=== PATIENT | male | born 1975 | race Caucasian/White ===

== ENCOUNTER 2024-05-09 09:52 | Outpatient (AMB) | payer OTHER, SELFPAY ==
[2024-05-09 09:56] VITALS: BP 132/84; PULSE 78; O2SAT 97; BMI 34.7
--- NOTE | 2024-05-09 09:56 | A.OFFPC_ITS ---
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 Details Pt presents for PE PFSH Surgical History H/O wrist surgery H/O hand surgery Family History (Updated 05/09/24 @ 10:21 by Yvonne Dean MD) Father Heart problem, Onset Age: 80 Prostate cancer, Onset Age: 55 Mother COPD (chronic obstructive pulmonary disease) Sister Substance use disorder Social History Household Members Other:: , 2 children, (19, 11), Housing: House Patient Tobacco Use Status: Former Tobacco user e-Cigarette/Vaping Use: Never Used service: No Current occupational status: employed Cognitive needs: No Hearing needs: No Vision needs: Yes Questionnaire PHQ-9 Over the last 2 weeks, how often have you been bothered by any of the following problems? 1. Little interest or pleasure in doing things: several days 2. Feeling down, depressed, or hopeless: not at all 3. Trouble falling or staying asleep, or sleeping too much: several days 4. Feeling tired or having little energy: several days 5. Poor appetite or overeating: several days 6. Feeling bad about yourself - or that you are a failure or have let yourself or your family down: not at all 7. Trouble concentrating on things, such as reading the newspaper or watching television: not at all 8. Moving or speaking so slowly that other people could have noticed. Or the opposite - being so fidgety or restless that you have been moving around a lot more than usual: not at all 9. Thoughts that you would be better off or of hurting yourself in some way: not at all Total score: 4 Depression Screening Interpretation: Negative Depression Screening Done: Yes 24439 - PHQ-9 Billing: Yes Source: Developed by Drs. Yoel Tran, Arlin Phillips, Kehinde Garcia and colleagues, with an educational matt from [employer]. Thrive Questionnaire Date Thrive assessed: 05/09/24 I am a: Patient What is your living situation today?: I have a steady place to live Within the past 12 months, did the food you bought not last and you didn't have the money to get more?: Never true Within the past 12 months, did you worry whether your food would run out before you got money to buy more?: Never true Do you have trouble paying for medicines?: No Do you have trouble getting transportation to medical appointments?: No Do you have trouble paying your heating and electricity bill?: No Do you have trouble taking care of your child, family member or friend?: No Do you have trouble with day-to-day activities such as bathing, preparing meals, shopping, managing finances, etc.?: No Are you currently unemployed and looking for a job?: No Are you interested in more education?: Yes Please select the resources that you would like help with: None Currently or been in a relationship where the following occur: No concerns r eported THRIVE Score: 0 AUDIT C Alcohol Use Questionnaire (AUDIT-C) 1. How often do you have a drink containing alcohol?: 2-4 times a month 2. How many drinks containing alcohol do you have on a typical day when you are drinking?: 3 or 4 3. How often do you have six or more drinks on one occasion?: Less than monthly Total Score: 4 DOC-7 AMB Questionnaire DOC-7 Date DOC - 7 assessed: 05/09/24 Feeling nervous, anxious, or on edge: 0 = Not at all Not being able to stop or control worryin = Not at all Worrying too much about different things: 0 = Not at all Trouble relaxin = Several days Being so restless that it is hard to sit still: 0 = Not at all Becoming easily annoyed or irritable: 0 = Not at all Feeling afraid as if something awful might happen: 0 = Not at all Total DOC-7 score (0-4 normal; 5-9 mild; 10-14 moderate; 15-21 severe): 1 Source: Developed by Drs. Yoel Tran, Arlin Phillips, Kehinde Garcia and colleagues, with an educational matt from [employer]. DOC-7 Assessment Billing DOC-7 Assessment Tool: DOC-7 Assessment 00785 Review of Systems Const All systems reviewed & are unremarkable except as noted in HPI and below Eyes Reports no additional complaints ENT Reports no additional complaints Card Reports no additional complaints Resp Reports no additional complaints GI Reports no additional complaints Reports no additional complaints Physical exam (Primary Care) Vital Signs: Last Vital Signs Pulse 78 05/09/24 09:56 BP 132/84 05/09/24 09:56 Pulse Ox 97 05/09/24 09:56 Oxygen Delivery Method Room Air 05/09/24 09:56 BMI result Body Mass Index 34.7 Tobacco/Smoking Status: Tobacco use Status Tobacco use date assessed 05/09/24 05/09/24 10:06 Patient Tobacco Use Status Former Tobacco user 05/09/24 10:17 e-Cigarette/Vaping Use Never Used 05/09/24 10:17 PHQ-9: PHQ-9 Score PHQ-9: Total score 4 05/09/24 12:40 Depression Screening Interpretation: Negative Thrive Assessment: Date of Thrive Assessment Date Thrive assessed 05/09/24 05/09/24 10:06 Currently or been in a relationship where the following occur: No concerns reported Const General: no acute distress HENMT Head: Yes normal to inspection Ears: hearing grossly normal bilaterally Face and sinus: Yes normal facial exam Mouth: Normal oral and palatal mucosa present Throat: Yes posterior oropharynx normal Eyes General: appearance normal, both eyes and all related structures Neck Neck: Yes no lymphadenopathy and Yes supple Resp Effort & Inspection: normal respiratory effort Auscultation: clear to auscultation bilaterally Cardio Rhythm: regular rhythm Heart sounds: S1 normal heart sound present and S2 normal heart sound present GI Inspection: Yes normal to inspection Palpation (GI): Soft to palpation Percussion: Yes normal to percussion Auscultation: normal bowel sounds Coding Level of Care Code Est Pt Prev Care 40-64y(59039) Diagnoses Substance abuse F19.10 Annual physical exam Z00.00 Hx of colonoscopy Z98.890 Additional Codes DOC-7 Assessment Billing - DOC-7 Assessment Tool: DOC-7 Assessment 30932 ([id number]) Assessment & Plan Assessment & Plan (1) Substance abuse: Comment: oral opiates , in remission for 16 years, in program Code(s): F19.10 - Other psychoactive substance abuse, uncomplicated Category: Medical Plan: Established with Suboxone program (2) Annual physical exam: Code(s): Z00.00 - Encounter for general adult medical examination without abnormal findings Category: Medical Plan: Well-balanced diet regular physical activity discussed with the patient. Blood pressure is borderline elevated. Low-sodium diet and weight loss discussed with the patient follow-up in 2 months. Check fasting blood work (3) Hx of colonoscopy: Comment: Gena Medina, Code(s): Z98.890 - Other specified postprocedural states Category: Surgical Plan: We will obtain records of colonoscopy Orders: Orders UA w Microscopic Today Z00.00 - Encounter for general adult medical examination without abnormal findings Comprehensive [place]. Panel Fast Today Z00.00 - Encounter for general adult medical examination without abnormal findings Lipid Panel Today Z00.00 - Encounter for general adult medical examination without abnormal findings Complete Blood Count Auto Diff Today Z00.00 - Encounter for general adult medical examination without abnormal findings PSA,Total (Free>4and<10) Today Z00.00 - Encounter for general adult medical examination without abnormal findings
== END 2024-05-09 10:36 | disposition home or self-care (01) ==
PROVIDERS: PCP Internal Medicine; Visit Provider Internal Medicine
DX: F19.10 Other psychoactive substance abuse, uncomplicated (principal); Z00.00 Encounter for general adult medical examination without abnormal findings; Z98.890 Other specified postprocedural states

== ENCOUNTER → 2024-05-09 09:52 | Outpatient (BNVA) | payer OTHER, SELFPAY | PROVIDERS: PCP Internal Medicine; Visit Provider Internal Medicine | DX: Z00.00 Encounter for general adult medical examination without abnormal findings (principal); F11.20 Opioid dependence, uncomplicated | CPT/HCPCS: 96127 ==

== ENCOUNTER 2024-05-27 08:37 | Outpatient (REF) | payer OTHER, SELFPAY ==
[2024-05-27 10:14] LABS: MANUAL DIFF FLAG NO
[2024-05-27 10:21] LABS: Basophils Absolute Auto 0.1 X10*3/uL (0.0-0.2); Basophils Percent Auto 1.1 % (0-2); Eosinophils Absolute Auto 0.1 X10*3/uL (0.0-0.4); Eosinophils Percent Auto 2.6 % (0-4); Hematocrit 53.7 % (42.0-52.0); Hemoglobin 17.6 g/dl (14.0-18.0); Imm Gran Abs Auto 0.01 X10*3/uL (0.00-0.03); Imm Gran Pct Auto 0.2 % (0.0-0.4); Lymphocytes Absolute Auto 1.9 X10*3/uL (1.2-4.9); Lymphocytes Percent Auto 35.7 % (20-40); Mean Corpuscular HGB Conc 32.8 g/dl (31.0-36.0); Mean Corpuscular Volume 94.5 fL (80.0-98.0); Mean Platelet Volume 9.6 fL (9.4-12.4); Monocytes Absolute Auto 0.5 X10*3/uL (0.1-1.2); Monocytes Percent Auto 9.1 % (2-11); Neutrophils Absolute Auto 2.8 x10*3/uL (2.0-8.3); Neutrophils Percent Auto 51.3 % (45-73); Platelet Count 218 X10*3/uL (160-400); Red Blood Count 5.68 X10*6/uL (4.60-5.80); Red Cell Distribution Width 13.2 % (11.0-16.0); White Blood Count 5.4 X10*3/uL (4.8-10.8)
[2024-05-27 10:43] LABS: Appearance Urine Clear; Color Urine Dark Yellow; Glucose Urine UA Negative (Negative); Leukocyte Esterase Urine Negative (Negative); Nitrite Urine Negative (Negative); PH 5.5 (5.0-9.0); Urine Blood Negative (Negative); Urine Ketones Trace mg/dL (Negative); Urine Protein Negative (Neg-Trace)
[2024-05-27 10:48] LABS: Alanine Aminotransferase 28 U/L (0-40); Albumin Level 4.1 g/dL (3.5-5.0); Alkaline Phosphatase 38 U/L (39-117); Anion Gap 14 (12-20); Aspartate Amino Transferase 30 U/L (5-37); Bilirubin Total 0.9 mg/dL (0.0-1.0); Blood Urea Nitrogen 8 mg/dL (9-16); Calcium 9.2 mg/dL (8.4-10.2); Carbon Dioxide 29 mmol/L (22-29); Chloride 104 mmol/L (96-108); Cholesterol 158 mg/dL (<200); Estimated Glomerular Filt Rate > 60; Glucose Fasting 105 mg/dL (60-99); HDL Cholesterol 50 mg/dL (>40); LDL Cholesterol Calculated 94 mg/dL (<100); Potassium 4.8 mmol/L (3.3-5.1); Sodium 142 mmol/L (135-145); Total Protein 7.2 g/dL (6.5-8.0); Triglycerides 74 mg/dL (<150)
[2024-05-27 10:54] LABS: Bacteria Urine None Seen (None Seen); RBC Urine 0-2 /HPF (0-2); Squamous Epithelial Cell Urine 0-2 /HPF (0-2); WBC Urine 0-5 /HPF (0-5)
[2024-05-27 11:12] LABS: PSA,Total (Free>4and<10) 1.94 ng/mL (0.00-4.00)
== END 2024-05-27 08:38 | disposition home or self-care (01) ==
LOC: HO.HMGCLDS 08:37
PROVIDERS: PCP Internal Medicine; Visit Provider Internal Medicine
DX: Z00.00 Encounter for general adult medical examination without abnormal findings (principal); Z12.5 Encounter for screening for malignant neoplasm of prostate
CPT/HCPCS: 36415; 80053; 80061; 81001; 84153; 85025

== ENCOUNTER 2024-07-10 10:42 | Outpatient (AMB) | payer OTHER, SELFPAY ==
[2024-07-10 10:45] VITALS: BP 139/88; PULSE 90; O2SAT 96; BMI 35.7
--- NOTE | 2024-07-10 10:45 | A.OFFPC_ITS ---
Vital Signs 07/10/24 10:45 Height 6 ft Weight 263 lb BMI 35.7 BP 139/88 Blood Pressure Location Rt brachial Position Sitting Pulse 90 Pulse Source Pulse Oximeter Pulse Oximetry (%) 96 Oxygen Delivery Method Room Air Intake Visit Reasons: 2 months f/up Intake Note: Pt is here today for 2 months follow up visit. Allergies prochlorperazine [From Compazine] Allergy (Verified 07/10/24 10:45) distolic Medication List - Last Reconciled 07/10/24 by Yvonne Dean MD buprenorphine-naloxone 2-0.5 mg 3 tabs sublingual DAILY lisinopril 10 mg PO DAILY Tobacco use date assessed: 07/10/24 Dental Screening Dental Screen Date: 05/09/24 HPI 2 months f/up HPI Details Patient presents for the follow-up. He has been exercising 3 times a week eating well-balanced diet and trying to lose weight. [facility] Surgical History H/O wrist surgery H/O hand surgery Family History Father Heart problem, Onset Age: 80 Prostate cancer, Onset Age: 55 Mother COPD (chronic obstructive pulmonary disease) Sister Substance use disorder Social History Household Members Other:: , 2 children, (19, 11), Housing: House Patient Tobacco Use Status: Former Tobacco user e-Cigarette/Vaping Use: Never Used service: No Current occupational status: employed Cognitive needs: No Hearing needs: No Vision needs: Yes Questionnaire Thrive Questionnaire Date Thrive assessed: 05/03/24 I am a: Patient What is your living situation today?: I have a steady place to live Within the past 12 months, did the food you bought not last and you didn't have the money to get more?: Never true Within the past 12 months, did you worry whether your food would run out before you got money to buy more?: Never true Do you have trouble paying for medicines?: No Do you have trouble getting transportation to medical appointments?: No Do you have trouble paying your heating and electricity bill?: No Do you have trouble taking care of your child, family member or friend?: No Do you have trouble with day-to-day activities such as bathing, preparing meals, shopping, managing finances, etc.?: No Are you currently unemployed and looking for a job?: No Are you interested in more education?: Yes Please select the resources that you would like help with: None Currently or been in a relationship where the following occur: No concerns reported THRIVE Score: 0 DOC-7 AMB Questionnaire DOC-7 Date DOC - 7 assessed: 05/09/24 Source: Developed by Drs. Yoel Tran, Arlin Phillips, Kehinde Garcia and colleagues, with an educational matt from [employer]. Review of Systems Const All systems reviewed & are unremarkable except as noted in HPI and below Eyes Reports no additional complaints ENT Reports no additional complaints Card Reports no additional complaints Resp Reports no additional complaints GI Reports no additional complaints Physical exam (Primary Care) Vital Signs: Last Vital Signs Pulse 90 07/10/24 10:45 Pulse Ox 96 07/10/24 10:45 Oxygen Delivery Method Room Air 07/10/24 10:45 BMI result Body Mass Index 35.7 Tobacco/Smoking Status: Tobacco use Status Tobacco use date assessed 07/10/24 07/10/24 10:47 Patient Tobacco Use Status Former Tobacco user 07/10/24 10:47 e-Cigarette/Vaping Use Never Used 07/10/24 10:47 Thrive Assessment: Date of Thrive Assessment Date Thrive assessed 05/03/24 07/10/24 10:47 Currently or been in a relationship where the following occur: No concerns reported Const General: no acute distress HENMT Head: Yes normal to inspection Throat: Yes posterior oropharynx normal Neck Neck: Yes supple Resp Effort & Inspection: normal respiratory effort Auscultation: clear to auscultation bilaterally Cardio Rhythm: regular rhythm Heart sounds: S1 normal heart sound present and S2 normal heart sound present Coding Level of Care Code Est Pt Level 3 (44870) Diagnoses HTN (hypertension) I10 Overweight E66.3 Assessment & Plan Assessment & Plan (1) HTN (hypertension): Code(s): I10 - Essential (primary) hypertension Category: Medical Plan: Start 10 mg of lisinopril. Low-sodium diet regular exercise discussed with the patient follow-up in 6 week (2) Overweight: Code(s): E66.3 - Overweight Category: Medical Plan: Decreasing caloric intake increasing physical activity discussed with the p gabriel Medications: New lisinopril 10 mg PO DAILY 90 tabs 0RF
== END 2024-07-10 11:53 | disposition home or self-care (01) ==
PROVIDERS: PCP Internal Medicine; Visit Provider Internal Medicine
DX: I10 Essential (primary) hypertension (principal); E66.3 Overweight

== ENCOUNTER 2024-08-21 11:02 | Outpatient (AMB) | payer OTHER, SELFPAY ==
[2024-08-21 11:12] VITALS: BP 126/90; PULSE 91; TEMP 37.3; O2SAT 96; BMI 34.7
--- NOTE | 2024-08-21 11:12 | MHC.PC.OV ---
Vital Signs 08/21/24 11:12 Height 6 ft Weight 256 lb BMI 34.7 BP 126/90 H Blood Pressure Location Lt brachial Position Sitting Pulse 91 Pulse Source Pulse Oximeter Temp 99.2 F Temp Source Oral Pulse Oximetry (%) 96 Oxygen Delivery Method Room Air Intake Visit Reasons: 6 week follow up Intake Note: Pt is here today for 6 weeks follow up visit on HTN. Allergies prochlorperazine [From Compazine] Allergy (Verified 08/21/24 11:13) distolic Medication List - Last Reconciled 08/21/24 by Yvonne Dean MD buprenorphine-naloxone 2-0.5 mg 3 tabs sublingual DAILY lisinopril 20 mg PO DAILY Tobacco use date assessed: 08/21/24 Dental Screening Dental Screen Date: 08/21/24 Did you have a dental visit in the last 12 months?: Yes Did you have a dental problem in the last 6 months where you did not have access to dental care?: No Was dental information given to patient?: Patient has dentist HPI 6 week follow up HPI Details Patient presents for the follow-up on hypertension. He has been taking 10 mg of lisinopril and tolerating medication well. Patient has been exercising 3 times a week walking for 45 minutes. [facility] Surgical History H/O wrist surgery H/O hand surgery Family History Father Heart problem, Onset Age: 80 Prostate cancer, Onset Age: 55 Mother COPD (chronic obstructive pulmonary disease) Sister Substance use disorder Social History Household Members Other:: , 2 children, (19, 11), Housing: House Patient Tobacco Use Status: Former Tobacco user e-Cigarette/Vaping Use: Never Used service: No Current occupational status: employed Cognitive needs: No Hearing needs: No Vision needs: Yes Questionnaire PHQ-9 Over the last 2 weeks, how often have you been bothered by any of the following problems? 1. Little interest or pleasure in doing things: not at all 2. Feeling down, depressed, or hopeless: not at all 3. Trouble falling or staying asleep, or sleeping too much: not at all 4. Feeling tired or having little energy: several days 5. Poor appetite or overeating: not at all 6. Feeling bad about yourself - or that you are a failure or have let yourself or your family down: not at all 7. Trouble concentrating on things, such as reading the newspaper or watching television: not at all 8. Moving or speaking so slowly that other people could have noticed. Or the opposite - being so fidgety or restless that you have been moving around a lot more than usual: not at all 9. Thoughts that you would be better off or of hurting yourself in some way: not at all Total score: 1 Depression Screening Interpretation: Negative Depression Screening Done: Yes 63576 - PHQ-9 Billing: Yes Source: Developed by Drs. Yoel Tran, Arlin Phillips, Kehinde Garcia and colleagues, with an educational matt from [employer]. Thrive Questionnaire Date Thrive assessed: 05/03/24 I am a: Patient What is your living situation today?: I have a steady place to live Within the past 12 months, did the food you bought not last and you didn't have the money to get more?: Never true Within the past 12 months, did you worry whether your food would run out before you got money to buy more?: Never true Do you have trouble paying for medicines?: No Do you have trouble getting transportation to medical appointments?: No Do you have trouble paying your heating and electricity bill?: No Do you have trouble taking care of your child, family member or friend?: No Do you have trouble with day-to-day activities such as bathing, preparing meals, shopping, managing finances, etc.?: No Are you currently unemployed and looking for a job?: No Are you interested in more education?: No Please select the resources that you would like help with: None Currently or been in a relationship where the following occur: No concerns reported THRIVE Score: 0 AUDIT C Alcohol Use Questionnaire (AUDIT-C) 1. How often do you have a drink containing alcohol?: 2-3 times a week 2. How many drinks containing alcohol do you have on a typical day when you are drinking?: 1 or 2 3. How often do you have six or more drinks on one occasion?: Less than monthly Total Score: 4 DOC-7 AMB Questionnaire DOC-7 Date DOC - 7 assessed: 05/09/24 Feeling nervous, anxious, or on edge: 0 = Not at all Not being able to stop or control worryin = Not at all Worrying too much about different things: 0 = Not at all Trouble relaxin = Several days Being so restless that it is hard to sit still: 0 = Not at all Becoming easily annoyed or irritable: 0 = Not at all Feeling afraid as if something awful might happen: 0 = Not at all Total DOC-7 score (0-4 normal; 5-9 mild; 10-14 moderate; 15-21 severe): 1 Source: Developed by Drs. Yoel Tran, Arlin Phillips, Kehinde Garcia and colleagues, with an educational matt from [employer]. Review of Systems Const All systems reviewed & are unremarkable except as noted in HPI and below ENT Reports no additional complaints Card Reports no additional complaints Resp Reports no additional complaints GI Reports no additional complaints Reports no additional complaints Physical exam (Primary Care) Vital Signs: Last Vital Signs Temp 99.2 F 08/21/24 11:12 Pulse 91 08/21/24 11:12 BP 126/90 H 08/21/24 11:12 Pulse Ox 96 08/21/24 11:12 Oxygen Delivery Method Room Air 08/21/24 11:12 BMI result Body Mass Index 34.7 Tobacco/Smoking Status: Tobacco use Status Tobacco use date assessed 08/21/24 08/21/24 11:13 Patient Tobacco Use Status Former Tobacco user 08/21/24 11:12 e-Cigarette/Vaping Use Never Used 08/21/24 11:12 PHQ-9: PHQ-9 Score PHQ-9: Total score 1 08/21/24 11:13 Depression Screening Interpretation: Negative Thrive Assessment: Date of Thrive Assessment Date Thrive assessed 05/03/24 08/21/24 11:12 Currently or been in a relationship where the following occur: No concerns reported Const General: no acute distress HENMT Throat: Yes posterior oropharynx normal Resp Effort & Inspection: normal respiratory effort Auscultation: clear to auscultation bilaterally Cardio Rhythm: regular rhythm Heart sounds: S1 normal heart sound present and S2 normal heart sound present GI Inspection: Yes normal to inspection Coding Level of Care Code Est Pt Level 3 (91681) Diagnoses HTN (hypertension) I10 Additional Codes PHQ-9 - 30308 - PHQ-9 Billing: Yes ([id number]) Assessment & Plan Assessment & Plan (1) HTN (hypertension): Code(s): I10 - Essential (primary) hypertension Category: Medical Plan: Increase lisinopril to 20 mg a day continue regular physical activity decreasing caloric intake and weight loss discussed with the patient, follow-up in 2 months Orders: Orders Basic Metabolic Panel 2 Weeks I10 - Essential (primary) hypertension Medications: New lisinopril 20 mg PO DAILY 90 tabs 1RF Discontinued lisinopril Discontinued Reason: Doctor's Order 10 mg PO DAILY 90 tabs 0RF
== END 2024-08-21 12:44 | disposition home or self-care (01) ==
PROVIDERS: PCP Internal Medicine; Visit Provider Internal Medicine
DX: I10 Essential (primary) hypertension (principal)

== ENCOUNTER → 2024-08-21 11:02 | Outpatient (BNVA) | payer OTHER, SELFPAY | PROVIDERS: PCP Internal Medicine; Visit Provider Internal Medicine | DX: I10 Essential (primary) hypertension (principal); Z79.899 Other long term (current) drug therapy | CPT/HCPCS: 96127 ==

== ENCOUNTER 2024-10-22 10:58 | Outpatient (AMB) | payer OTHER, SELFPAY ==
[2024-10-22 11:01] VITALS: BP 124/84; PULSE 87; RESP 20; TEMP 37.2; O2SAT 96; BMI 35.3
--- NOTE | 2024-10-22 11:01 | MHC.PC.OV ---
Vital Signs 10/22/24 11:01 Height 6 ft Weight 260 lb BMI 35.3 BP 124/84 Blood Pressure Location Lt brachial Position Sitting Respiration 20 Pulse 87 Pulse Source Pulse Oximeter Temp 98.9 F Temp Source Oral Pulse Oximetry (%) 96 Oxygen Delivery Method Room Air Intake Visit Reasons: BP followup Intake Note: Pt is here today for a follow up visit on BP. Allergies prochlorperazine [From Compazine] Allergy (Verified 10/22/24 11:02) distolic lisinopril Adverse Reaction (Intermediate, Verified 10/22/24 11:27) Cough Medication List - Last Reconciled 10/22/24 by Yvonne Dean MD amlodipine-olmesartan 5-20 mg 1 tab PO DAILY buprenorphine-naloxone 2-0.5 mg 3 tabs sublingual DAILY Tobacco use date assessed: 10/22/24 Dental Screening Dental Screen Date: 08/21/24 HPI BP followup HPI Details Patient presents for the follow-up on hypertension. He complains of dry cough since increasing the dose of lisinopril. Patient also reports blood pressure elevated at home up to 140/100. Patient has not started exercising yet but has been eating less processed foods more well-balanced diet. He was seen in the ER for the episode of right upper quadrant abdominal pain CT of the abdomen was done showed left for 3 mm nephrolithiasis without obstruction PFSH Surgical History H/O wrist surgery H/O hand surgery Family History Father Heart problem, Onset Age: 80 Prostate cancer, Onset Age: 55 Mother COPD (chronic obstructive pulmonary disease) Sister Substance use disorder Social History Household Members Other:: , 2 children, (19, 11), Housing: House Patient Tobacco Use Status: Former Tobacco user e-Cigarette/Vaping Use: Never Used service: No Current occupational status: employed Cognitive needs: No Hearing needs: No Vision needs: Yes Questionnaire Thrive Questionnaire Date Thrive assessed: 08/21/24 I am a: Patient What is your living situation today?: I have a steady place to live Within the past 12 months, did the food you bought not last and you didn't have the money to get more?: Never true Within the past 12 months, did you worry whether your food would run out before you got money to buy more?: Never true Do you have trouble paying for medicines?: No Do you have trouble getting transportation to medical appointments?: No Do you have trouble paying your heating and electricity bill?: No Do you have trouble taking care of your child, family member or friend?: No Do you have trouble with day-to-day activities such as bathing, preparing meals, shopping, managing finances, etc.?: No Are you currently unemployed and looking for a job?: No Are you interested in more education?: No Please select the resources that you would like help with: None Currently or been in a relationship where the following occur: No concerns reported THRIVE Score: 0 DOC-7 AMB Questionnaire DOC-7 Date DOC - 7 assessed: 05/09/24 Source: Developed by Drs. Yoel Tran, Arlin Phillips, Kehinde Garcia and colleagues, with an educational matt from [employer]. Review of Systems Const All systems reviewed & are unremarkable except as noted in HPI and below Eyes Reports no additional complaints ENT Reports no additional complaints Card Reports no additional complaints Resp Reports no additional complaints GI Reports no additional complaints Reports no additional complaints Physical exam (Primary Care) Vital Signs: Last Vital Signs Temp 98.9 F 10/22/24 11:01 Pulse 87 10/22/24 11:01 Resp 20 10/22/24 11:01 BP 124/84 10/22/24 11:01 Pulse Ox 96 10/22/24 11:01 Oxygen Delivery Method Room Air 10/22/24 11:01 BMI result Body Mass Index 35.3 Tobacco/Smoking Status: Tobacco use Status Tobacco use date assessed 10/22/24 10/22/24 11:05 Patient Tobacco Use Status Former Tobacco user 10/22/24 11:05 e-Cigarette/Vaping Use Never Used 10/22/24 11:05 Thrive Assessment: Date of Thrive Assessment Date Thrive assessed 08/21/24 10/22/24 11:05 Currently or been in a relationship where the following occur: No concerns reported Const General: no acute distress HENMT Head: Yes normal to inspection General nose exam: Normal external nose present Throat: Yes posterior oropharynx normal Eyes General: appearance normal, both eyes and all related structures Resp Effort & Inspection: normal respiratory effort Auscultation: clear to auscultation bilaterally Cardio Rhythm: regular rhythm Heart sounds: S1 normal heart sound present and S2 normal heart sound present Coding Level of Care Code Est Pt Level 4 (84929) Diagnoses HTN (hypertension) I10 Overweight E66.3 Substance abuse F19.10 Nephrolithiasis N20.0 Assessment & Plan Assessment & Plan (1) HTN (hypertension): Code(s): I10 - Essential (primary) hypertension Category: Medical Plan: Change lisinopril to amlodipine with olmesartan 12/16, increase physical activity low-sodium diet regular exercise and weight loss discussed with the patient. Obtain renal artery Doppler to rule out renal artery stenosis. Follow-up in 1 month (2) Overweight: Code(s): E66.3 - Overweight Category: Medical Plan: Decreasing caloric intake increasing physical activity and weight loss discussed with the patient (3) Substance abuse: Comment: oral opiates , in remission for 16 years, in program Code(s): F19.10 - Other psychoactive substance abuse, uncomplicated Category: Medical Plan: Established in program (4) Nephrolithiasis: Comment: left 3 mm , nonobstructing, CT abd/pelvis 09/2024 Code(s): N20.0 - Calculus of kidney Category: Medical Plan: Increasing fluid intake discussed with the patient Orders: Orders US renal doppler Today I10 - Essential (primary) hypertension Medications: New amlodipine-olmesartan 5-20 mg 1 tab PO DAILY 90 tabs 0RF Discontinued lisinopril Discontinued Reason: Doctor's Order 20 mg PO DAILY 90 tabs 1RF
--- OUTSIDE RECORDS SUMMARY | 2024-10-22 13:08 | XMS_ITS ---
Author Organization [facility] Address [address] [place] [address] Care Team Providers Care Rock Duster Name Role Phone ROHAN SURAJ [facility] [phone] REASON FOR VISIT Suboxone F/U Medications Medication SIG (Take, Route, Frequency, Duration) Notes Start Date End Date Status Buprenorphine HCl-Naloxone HCl 8-2 MG 1 film under the tongue and allow to dissolve Sublingual Three times daily for 30 days Partial refill upon pt request. [id number] 04/12/2022 Active Encounters Encounter Location Date Provider Diagnosis [facility] [address] [place] [phone] 07/29/2024 SURAJ MADRIGAL Plan Of Treatment Next Appt Details Provider Name:SURAJ SNYDER, 11/13/2024 11:00:00 AM, [address] [place] [address], [phone], Progress Notes * JOSELINERitoDOB: 5 (49 yo M)Acc No.[id number]:07/29/2024 Progress Notes Patient:?TREVIZORito Provider:?Suraj Madrigal MD :1975???Age:49 Y???Sex:Male Brice e:07/29/2024 Address: [address] [id number] Subjective: * Chief Complaints: * ???Suboxone F/U * Medical History:? * Surgical History:? * Hospitalization/Major Diagno stic Procedure:? * Medications:?TakingBuprenorp marge HCl-Naloxone HCl 8-2 MG Film 1 film under the tongue and allow to dissolve Sublingual Three times daily , Notes to Pharmacist: Partial refill upon pt request. [id number] Buprenorphine HCl-Naloxone HCl 8-2 MG Film 1 film under the tongue and allow to dissolve Sublingual Three times daily , Notes to Pharmacist: Partial refill upon pt request. [id number] Objective: * Vitals:? Assessment: Plan: * Treatment: * Procedure Codes:? * Billing Information: * Visit Code:? * Procedure Codes:? * Sign off status: Completed true * Provider:?Suraj Madrigal MD Date:? Generated for Wili kraus/Ivan/eTransmitting on:?10/22/2024 01:08 PM EDT
--- OUTSIDE RECORDS SUMMARY | 2024-10-22 13:09 | XMS_ITS ---
Author Organization [facility] Address [address] [place] [address] Care Team Providers Care Client Support Manager Name Role Phone ROHAN SURAJ [facility] [phone] REASON FOR VISIT urine tox Medications Medication SIG (Take, Route, Frequency, Duration) Notes Start Date End Date Status Buprenorphine HCl-Naloxone HCl 8-2 MG 1 film under the tongue and allow to dissolve Sublingual Three times daily for 30 days Partial refill upon pt request. [id number] 04/12/2022 Active Encounters Encounter Location Date Provider Diagnosis [facility] [address] [place] [phone] 10/17/2024 SURAJ MADRIGAL Plan Of Treatment Next Appt Details Provider Name:SURAJ SNYDER, 11/13/2024 11:00:00 AM, [address] [place] [address], [phone], Progress Notes * JOSELINE RitoDOB: [birth year] (49 yo M)Acc No.[id number]:10/17/2024 Patient:?Rito TREVIZO Provider:?Suraj Madrigal MD :1975???Age:49 Y???Sex:Male Brice e:10/17/2024 Address:[address] [id number] Subjective: * Chief Complaints: * ???Urine tox * Medical History:? * Medications:?TakingBuprenorp marge HCl-Naloxone HCl 8-2 MG Film 1 film under the tongue and allow to dissolve Sublingual Three times daily , Notes to Pharmacist: Partial refill upon pt request. [id number] Buprenorphine HCl-Naloxone HCl 8-2 MG Film 1 film under the tongue and allow to dissolve Sublingual Three times daily , Notes to Pharmacist: Partial refill upon pt request. [id number] Objective: * Vitals:? Assessment: Plan: * Treatment: * Procedure Codes:? * Billing Information: * Visit Code:? * Procedure Codes:? * Sign off status: Completed true * Provider:?Suraj Madrigal MD Date:? Generated for Wili kraus/Ivan/Mundosmitting on:?10/22/2024 01:08 PM EDT
--- OUTSIDE RECORDS SUMMARY | 2024-10-22 13:09 | XMS_ITS | Patient Health Record ---
Author Organization [employer] Address [address] [place] [address] Care Team Providers Care Voucher Clerk Name Role Phone SURAJ MADRIGAL [phone] Results Component Value Reference Range Notes Ethyl Glucuronide, Urine Reviewed date:12/31/2023 03:15:12 PM Interpretation: Performing Lab:[facility], [address] [place] [address], Phone - [phone], Director - [facility] Notes/Report: Clinical Information:Client Drop Off [id number]:[id number] RA Ethyl Glucuronide Screen, Ur Negative Gfuqya=502 ng/mL This test was developed and its performance characteristics determined by [employer]. It has not been cleared or approved by the Food and Drug Administration. Fentanyl/Norfentanyl, Confir m Reviewed date:12/31/2023 03:14:44 PM Interpretation: Performing Lab:[facility], [address] [place] [address], Phone - [phone], Director - [facility] Notes/Report: Clinical Information:Client Drop Off CCU:[id number] [id number] RA Fentanyl/Norfentanyl Negative Aveuej=662 Test in cludes Fentanyl and Norfentanyl Please Note: Drug test results should be interpreted in the context of clinical information. Patient metabolic variables, specific drug chemistry, and specimen characteristics can affect test outcome. Technical consultation is available if a test result is inconsistent with an expected outcome. Email: [email or web address] Buprenorphine Confirm, Urine Reviewed date:12/31/2023 03:14:54 PM Interpretation: Performing Lab:[facility], [address] [place] [address], Phone - [phone], Director - Anand Notes/Report: Clinical Information:Client Drop Off CCU:[id number] RA Buprenorphine Positive Confirmation p erformed by Mass Spectrometry Buprenorphine Positive Buprenorphine Conf, MS, UR 320 Cutoff=10 ng/m L Norbuprenorphine Positive Norbuprenorphine Conf, MS, UR 576 Cutoff=10 ng/mL Adulteration (Dilution), Uri ne Reviewed date:12/31/2023 03:15:03 PM Interpretation: Performing Lab:[facility], [address] [place] [address], Phone - [phone], Director - [facility] Notes/Report: Clinical Information:Client Drop Off CCU:[id number] RA Creatinine, Urine 350.8 20.0-300.0 mg/dL Nitrite, Urine Negative Mdkyaa=469 mcg/mL pH, Urine 5.9 4.5-8.9 Cannabinoids, Conf, MS, UR Reviewed date:12/31/2023 03:14:36 PM Interpretation: Performing Lab:[facility], [address] [place] [address], Phone - [phone], Director - [facility] Notes/Report: Clinical Information:Client Drop Off CCU:[id number] RA CANNABINOIDS +POSITIVE+ Carboxy-THC 30 This test is not intended to distinguish between the metabolites of uuzmg-5-dqxipumjhrucjyyd inol, the predominant form of THC in most herbal or marijuana-based products, and qaeuv-5-rnwwfohbtmmgcgpj inol, a psychoactive compound generally synthesized from other cannabinoids. Level of Detection: Testing Threshold: 2 ng/mL ' This test was developed and its performance characteristics determined by [facility]. It has not been cleared or approved by the Food and Drug Administration. Ethyl Glucuronide, Urine Reviewed date:02/24/2024 02:04:39 PM Interpretation: Performing Lab:[facility], [address] [place] [address], Phone - [phone], Director - [facility] Notes/Report: Clinical Information:Client Drop Off CCU:[id number] RA Ethyl Glucuronide Screen, Ur Negative Xfimgm=273 ng/mL This test was developed and its performance characteristics determined by [facility]. It has not been cleared or approved by the Food and Drug Administration. Buprenorphine Confirm, Urine Reviewed date:02/24/2024 02:04:28 PM Interpretation: Performing Lab:[facility], [address] [place] [address], Phone - [phone], Director - [facility] Notes/Report: Clinical Information:Client Drop Off CCU:[id number] RA Buprenorphine Positive Confirmation p erformed by Mass Spectrometry Buprenorphine Positive Buprenorphine Conf, MS, UR 222 Cutoff=10 ng/m L Norbuprenorphine Positive Norbuprenorphine Conf, MS, UR 452 Cutoff=10 ng/mL Adulteration (Dilution), Uri ne Reviewed date:02/24/2024 02:04:21 PM Interpretation: Performing Lab:[facility], [address] [place] [address], Phone - [phone], Director - [facility] Notes/Report: Clinical Information:Client Drop Off CCU:[id number] RA Creatinine, Urine 270.4 20.0-300.0 mg/dL Nitrite, Urine Negative Xlhehl=996 mcg/mL pH, Urine 5.7 4.5-8.9 Cannabinoids, Conf, MS, UR Reviewed date:02/24/2024 02:04:33 PM Interpretation: Performing Lab:[facility], [address] [place] [address], Phone - [phone], Director - [facility] Notes/Report: Clinical Information:Client Drop Off CCU:[id number] RA CANNABINOIDS +POSITIVE+ Carboxy-THC 66 This test is not intended to distinguish between the metabolites of viryq-5-mqnejhuhuequnnmy inol, the predominant form of THC in most herbal or marijuana-based products, and pgljj-2-claohcoqhhlfeuzb inol, a psychoactive compound generally synthesized from other cannabinoids. Level of Detection: Testing Threshold: 2 ng/mL ' This test was developed and its performance characteristics determined by [employer]. It has not been cleared or approved by the Food and Drug Administration. Ethyl Glucuronide, Urine Reviewed date:04/16/2024 04:48:08 PM Interpretation: Performing Lab:[facility], [address] [place] [address], Phone - [phone], Director - [facility] Notes/Report: Clinical Information:Client Drop Off CCU:[id number] Technical Component - Data Analysis performed at [facility], [address] [place] [address], [address] . [facility] [employer] [facility] An Eaton MD Clinical Information:Client Drop Off CCU:[id number] [id number] RA Technical Component - Data Analysis performed at [address], [address] . [facility] [employer] [facility] An Eaton MD Ethyl Glucuronide Screen, Ur See Final Results Isiiyb=303 ng/mL This test was developed and its performance characteristics determined by [employer]. It has not been cleared or approved by the Food and Drug Administration. EtG/EtS LC/MS/MS Positive Exqinl=982 Ethyl Glucuronide Positive Ethyl Glucuronide LC/MS/MS 3092 Lxghkj=782 ng/ mL Ethyl Sulfate Positive Ethyl Sulfate LC/MS/MS 1966 Cutoff=75 ng/mL Please Note: Incidental exposure to alcohol may result in detectable levels of EtG and/or EtS. EtG/EtS results should be interpreted in the context of all available clinical and behavioral information. Technical consultation is available: email [email or web address], or call toll free [phone]. . Reference: [facility] Advisory, Spring 2011 Volume 11, Issue 2 Fentanyl/Norfentanyl, Confir m Reviewed date:04/16/2024 04:48:29 PM Interpretation: Performing Lab:[facility], [address] [place] [address], Phone - [phone], Director - Anand Notes/Report: Clinical Information:Client Drop Off CCU:[id number] [id number] RA Technical Component - Data Analysis performed at [address], [address] . [facility] [employer] [facility] An Eaton MD Fentanyl/Norfentanyl Negative Strjzr=992 Test in cludes Fentanyl and Norfentanyl Please Note: Drug test results should be interpreted in the context of clinical information. Patient metabolic variables, specific drug chemistry, and specimen characteristics can affect test outcome. Technical consultation is available if a test result is inconsistent with an expected outcome. Email: [email or web address] Buprenorphine Confirm, Urine Reviewed date:04/16/2024 04:48:35 PM Interpretation: Performing Lab:[facility], [address] [place] [address], Phone - [phone], Director - Anand Notes/Report: Clinical Information:Client Drop Off CCU:[id number] [id number] Technical Component - Data Analysis performed at [facility], [address] [place] [address], [address] . [facility] [employer] [facility] An Eaton MD Buprenorphine Positive Confirmation p erformed by Mass Spectrometry Buprenorphine Positive Buprenorphine Conf, MS, UR 382 Cutoff=10 ng/m L Norbuprenorphine Positive Norbuprenorphine Conf, MS, UR 600 Cutoff=10 ng/mL Adulteration (Dilution), Uri ne Reviewed date:04/16/2024 04:48:15 PM Interpretation: Performing Lab:[facility], [address] [place] [address], Phone - [phone], Director - Anand Notes/Report: Clinical Information:Client Drop Off CCU:[id number] Technical Component - Data Analysis performed at [address], [address] . [facility] [employer] [facility] An Eaton MD Creatinine, Urine 314.5 20.0-300.0 mg/dL Nitrite, Urine Negative Pgxknr=511 mcg/mL pH, Urine 5.5 4.5-8.9 Cannabinoids, Conf, MS, UR Reviewed date:04/16/2024 04:48:22 PM Interpretation: Performing Lab:[facility], [address] [place] [address], Phone - [phone], Director - Anand Notes/Report: Clinical Information:Client Drop Off CCU:[id number] Technical Component - Data Analysis performed at [address], [address] . [facility] [employer] [facility] An Eaton MD CANNABINOIDS +POSITIVE+ Carboxy-THC 51 This test is not intended to distinguish between the metabolites of kntcf-4-doawjznjkovwibmx inol, the predominant form of THC in most herbal or marijuana-based products, and lnslc-4-xijtdfzakvajzpqe inol, a psychoactive compound generally synthesized from other cannabinoids. Level of Detection: Testing Threshold: 2 ng/mL ' This test was developed and its performance characteristics determined by [facility]. It has not been cleared or approved by the Food and Drug Administration. Ethyl Glucuronide, Urine Reviewed date:06/09/2024 12:24:40 PM Interpretation: Performing Lab:[facility], [address] [place] [address], Phone - [phone], Director Sandra Acevedo Notes/Report: Clinical Information:CCU:[id number] [id number] RA Clinical Information:CCU:[id number] [id number] RA Ethyl Glucuronide Screen, Ur See Final Results Kopodu=450 ng/mL This test was developed and its performance characteristics determined by [employer]. It has not been cleared or approved by the Food and Drug Administration. EtG/EtS LC/MS/MS Positive Rdgsme=913 Ethyl Glucuronide Positive Ethyl Glucuronide LC/MS/MS 94108 Immtmq=784 ng/ mL Ethyl Sulfate Positive Ethyl Sulfate LC/MS/MS 4836 Cutoff=75 ng/mL Please Note: Incidental exposure to alcohol may result in detectable levels of EtG and/or EtS. EtG/EtS results should be interpreted in the context of all available clinical and behavioral information. Technical consultation is available: email [email or web address], or call toll free [phone]. . Reference: [facility] Advisory, Spring 2012 Volume 11, Issue 2 Fentanyl/Norfentanyl, Confir m Reviewed date:06/09/2024 12:20:35 PM Interpretation: Performing Lab:[facility], [address] [place] [address], Phone - [phone], Director Sandra Acevedo Notes/Report: Clinical Information:CCU:[id number] [id number] RA Fentanyl/Norfentanyl Negative Znnzbs=740 Test in cludes Fentanyl and Norfentanyl Please Note: Drug test results should be interpreted in the context of clinical information. Patient metabolic variables, specific drug chemistry, and specimen characteristics can affect test outcome. Technical consultation is available if a test result is inconsistent with an expected outcome. Email: [email or web address] Buprenorphine Confirm, Urine Reviewed date:06/09/2024 12:20:41 PM Interpretation: Performing Lab:[facility], [address] [place] [address], Phone - [phone], Director Sandra Acevedo Notes/Report: Clinical Information:CCU:[id number] RA Buprenorphine Positive Confirmation p erformed by Mass Spectrometry Buprenorphine Positive Buprenorphine Conf, MS, UR 186 Cutoff=10 ng/m L Norbuprenorphine Positive Norbuprenorphine Conf, MS, UR 232 Cutoff=10 ng/mL Adulteration (Dilution), Uri ne Reviewed date:06/09/2024 12:24:27 PM Interpretation: Performing Lab:[facility], [address] [place] [address], [place], Phone - [phone], Director - Kristina Notes/Report: Clinical Information:CCU:[id number] RA Creatinine, Urine 165.4 20.0-300.0 mg/dL Nitrite, Urine Negative Ioonpi=931 mcg/mL pH, Urine 5.5 4.5-8.9 Ethyl Glucuronide, Urine Reviewed date:08/04/2024 09:38:07 AM Interpretation: Performing Lab:[facility], [address] [place] [address], Phone - [phone], Director - Anand Notes/Report: Clinical Information:Client Drop Off CCU:[id number] [address] [facility] [address] Clinical Information:Client Drop Off CCU:[id number] [address] [facility] [address] Ethyl Glucuronide Screen, Ur See Final Results Ggkjni=468 ng/mL This test was developed and its performance characteristics determined by [employer]. It has not been cleared or approved by the Food and Drug Administration. EtG/EtS LC/MS/MS Positive Oohdtn=947 Ethyl Glucuronide Positive Ethyl Glucuronide LC/MS/MS >74152 Alussn=683 ng/ mL Ethyl Sulfate Positive Ethyl Sulfate LC/MS/MS >7500 Cutoff=75 ng/mL Please Note: Incidental exposure to alcohol may result in detectable levels of EtG and/or EtS. EtG/EtS results should be interpreted in the context of all available clinical and behavioral information. Technical consultation is available: email [email or web address], or call toll free [phone]. . Reference: [facility] Advisory, Spring 2011 Volume 11, Issue 2 Fentanyl/Norfentanyl, Confir m Reviewed date:08/04/2024 09:38:25 AM Interpretation: Performing Lab:[facility], [address] [place] [address], Phone - [phone], Director - Anand Notes/Report: Clinical Information:Client Drop Off CCU:[id number] [address] [address] Fentanyl/Norfentanyl Negative Urzwzn=882 Test in cludes Fentanyl and Norfentanyl Please Note: Drug test results should be interpreted in the context of clinical information. Patient metabolic variables, specific drug chemistry, and specimen characteristics can affect test outcome. Technical consultation is available if a test result is inconsistent with an expected outcome. Email: [email or web address] Buprenorphine Confirm, Urine Reviewed date:08/04/2024 09:38:19 AM Interpretation: Performing Lab:[facility], [address] [place] [address], Phone - [phone], Director - Anand Notes/Report: Clinical Information:Client Drop Off CCU:[id number] [address] [address] Buprenorphine Positive Confirmation p erformed by Mass Spectrometry Buprenorphine Positive Buprenorphine Conf, MS, UR 180 Cutoff=10 ng/m L Norbuprenorphine Positive Norbuprenorphine Conf, MS, UR 278 Cutoff=10 ng/mL Adulteration (Dilution), Uri ne Reviewed date:08/04/2024 09:38:14 AM Interpretation: Performing Lab:[facility], [address] [place] [address], Phone - [phone], Director - Anand Notes/Report: Clinical Information:Client Drop Off CCU:[id number] 52 [facility] [address] Creatinine, Urine 224.3 20.0-300.0 mg/dL Nitrite, Urine Negative Bwoash=273 mcg/mL pH, Urine 5.8 4.5-8.9 Cannabinoids, Conf, MS, UR Reviewed date:08/04/2024 09:38:31 AM Interpretation: Performing Lab:[facility], [address] [place] [address], Phone - [phone], Director - Anand Notes/Report: Clinical Information:Client Drop Off CCU:[id number] [address] [facility] [address] CANNABINOIDS +POSITIVE+ Carboxy-THC 7 This test is not intended to distinguish between the metabolites of mqwhl-5-vosotndrcdxppuwf inol, the predominant form of THC in most herbal or marijuana-based products, and gkemd-8-cnirccxdgxktwchj inol, a psychoactive compound generally synthesized from other cannabinoids. Level of Detection: Testing Threshold: 2 ng/mL ' This test was developed and its performance characteristics determined by [facility]. It has not been cleared or approved by the Food and Drug Administration. Ethyl Glucuronide, Urine Reviewed date:10/01/2024 03:15:14 PM Interpretation: Performing Lab:[facility], [address] [place] [address], Phone - [phone], Director - [facility] Notes/Report: Clinical Information:Client Drop Off CCU:[id number] RA Clinical Information:Client Drop Off CCU:[id number] RA Ethyl Glucuronide Screen, Ur See Final Results Ydosax=136 ng/mL This test was developed and its performance characteristics determined by [facility]. It has not been cleared or approved by the Food and Drug Administration. EtG/EtS LC/MS/MS Positive Gkmaum=744 Ethyl Glucuronide Positive Ethyl Glucuronide LC/MS/MS >42225 Qjfney=266 ng/ mL Ethyl Sulfate Positive Ethyl Sulfate LC/MS/MS >7500 Cutoff=75 ng/mL Please Note: Incidental exposure to alcohol may result in detectable levels of EtG and/or EtS. EtG/EtS results should be interpreted in the context of all available clinical and behavioral information. Technical consultation is available: email [email or web address], or call toll free [phone]. . Reference: [facility] Advisory, Spring 2011 Volume 11, Issue 2 Fentanyl/Norfentanyl, Confir m Reviewed date:10/01/2024 03:15:08 PM Interpretation: Performing Lab:[facility], [address] [place] [address], Phone - [phone], Director [facility] Notes/Report: Clinical Information:Client Drop Off CCU:[id number] RA Fentanyl/Norfentanyl Negative Lopodd=191 Test in cludes Fentanyl and Norfentanyl Please Note: Drug test results should be interpreted in the context of clinical information. Patient metabolic variables, specific drug chemistry, and specimen characteristics can affect test outcome. Technical consultation is available if a test result is inconsistent with an expected outcome. Email: [email or web address] Buprenorphine Confirm, Urine Reviewed date:10/01/2024 03:14:48 PM Interpretation: Performing Lab:[facility], [address] [place] [address], Phone - [phone], Director - [facility] Notes/Report: Clinical Information:Client Drop Off CCU:[id number] [id number] RA Buprenorphine Positive Confirmation p erformed by Mass Spectrometry Buprenorphine Positive Buprenorphine Conf, MS, UR 84 Cutoff=10 ng/m L Norbuprenorphine Positive Norbuprenorphine Conf, MS, UR 182 Cutoff=10 ng/mL Adulteration (Dilution), Uri ne Reviewed date:10/01/2024 03:15:00 PM Interpretation: Performing Lab:[facility], [address] [place] [address], Phone - [phone], [facility] - [facility] Notes/Report: Clinical Information:Client Drop Off CCU:[id number] [id number] RA Creatinine, Urine 189.8 20.0-300.0 mg/dL Nitrite, Urine Negative Hfhgef=346 mcg/mL pH, Urine 7.5 4.5-8.9 Cannabinoids, Conf, MS, UR Reviewed date:10/01/2024 03:14:54 PM Interpretation: Performing Lab:[facility], [address] [place] [address], Phone - [phone], Director - [employer] Notes/Report: Clinical Information:Client Drop Off CCU:[id number] [id number] RA CANNABINOIDS +POSITIVE+ Carboxy-THC 13 This test is not intended to distinguish between the metabolites of aqrst-8-zdecnnedfojoszji inol, the predominant form of THC in most herbal or marijuana-based products, and oxdjz-7-usrrukngypfkrbbc inol, a psychoactive compound generally synthesized from other cannabinoids. Level of Detection: Testing Threshold: 2 ng/mL ' This test was developed and its performance characteristics determined by [employer]. It has not been cleared or approved by the Food and Drug Administration. Reason For Referral No Information Medications Medication SIG (Take, Route, Frequency, Duration) Notes Start Date End Date Status Buprenorphine HCl-Naloxone HCl 8-2 MG 1 film under the tongue and allow to dissolve Sublingual Three times daily for 30 days Partial refill upon pt request. [id number] 04/12/2022 Active Problems Problem Type SNOMED Code ICD Code Onset Dates Problem Status W/U Status Risk Notes Problem Opioid dependence (81395229) Opioid dependence, uncomplicated (F11.20) Active confirmed Encounters Encounter Location Date Provider Diagnosis [address] [address] [facility] [address] [facility] [address] [address] [facility] [address] [address] 06/03/20[facility] [address] 07/29/20[facility] [address] 09/24/20[facility] [address] [address] 10/17/2024 SURAJ MADRIGAL Plan Of Treatment Next Appt Details Provider Name:SURAJ SNYDER, 11/13/2024 11:00:00 AM, [address] [place] [address], [phone], Insurance Providers Payer Name Payer Address Payer Phone Subscriber Number Group Number Insured Name Patient Relationship to Insured Coverage Start Date Coverage End Date [employer] [address] [place] [phone] [id number] Rito Marquez Self - patient is the insured
--- OUTSIDE RECORDS SUMMARY | 2024-10-22 13:09 | XMS_ITS ---
Author Organization [employer] Address [address] [place] [address] Care Team Providers Care Keeper Head Name Role Phone ROHAN SURAJ [facility] [phone] REASON FOR VISIT Suboxone F/U Medications Medication SIG (Take, Route, Frequency, Duration) Notes Start Date End Date Status Buprenorphine HCl-Naloxone HCl 8-2 MG 1 film under the tongue and allow to dissolve Sublingual Three times daily for 30 days Partial refill upon pt request. [id number] 04/12/2022 Active Encounters Encounter Location Date Provider Diagnosis [facility] [address] [place] [phone] 09/24/2024 SURAJ MADRIGAL Plan Of Treatment Next Appt Details Provider Name:SURAJ SNYDER, 11/13/2024 11:00:00 AM, [address] [place] [address], [phone], Progress Notes * JOSELINERitoDOB: 5 (49 yo M)Acc No.[id number]:09/24/2024 Progress Notes Patient:?TREVIZORito Provider:?Suraj Madrigal MD :1975???Age:49 Y???Sex:Male Brice e:09/24/2024 Address: [address] [id number] Subjective: * Chief Complaints: * ???Suboxone F/U * Medical History:? * Surgical History:? * Hospitalization/Major Diagno stic Procedure:? * Medications:?TakingBuprenorp marge HCl-Naloxone HCl 8-2 MG Film 1 film under the tongue and allow to dissolve Sublingual Three times daily , Notes to Pharmacist: Partial refill upon pt request. [id number] Buprenorphine HCl-Naloxone HCl 8-2 MG Film 1 film under the tongue and allow to dissolve Sublingual Three times daily , Notes to Pharmacist: Partial refill upon pt request. [id number] Objective: * Vitals:? Assessment: Plan: * Treatment: * Procedure Codes:? * Billing Information: * Visit Code:? * Procedure Codes:? * Sign off status: Completed true * Provider:?Suraj Madrigal MD Date:? Generated for Wili kraus/Ivan/eTransmitting on:?10/22/2024 01:08 PM EDT
== END 2024-10-22 11:29 | disposition home or self-care (01) ==
LOC: HO.HMCC 10:59
PROVIDERS: PCP Internal Medicine; Visit Provider Internal Medicine
DX: I10 Essential (primary) hypertension (principal); E66.3 Overweight; F19.10 Other psychoactive substance abuse, uncomplicated; N20.0 Calculus of kidney

== ENCOUNTER → 2024-10-22 10:58 | Outpatient (BNVA) | payer OTHER, SELFPAY | PROVIDERS: PCP Internal Medicine; Visit Provider Internal Medicine ==

== ENCOUNTER 2024-12-30 11:48 | Outpatient (AMB) | payer OTHER, SELFPAY ==
[2024-12-30 11:58] VITALS: BP 122/86; PULSE 90; O2SAT 97; BMI 34.6
--- NOTE | 2024-12-30 11:58 | MHC.PC.OV ---
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 He has been working out and lost 10 lb since the last visit. [facility] Medical History (Updated 12/30/24 @ 12:58 by Yvonne Dean MD) Overweight Annual physical exam Substance abuse Nephrolithiasis HTN (hypertension) Surgical History (Updated 12/30/24 @ 12:58 by Yvonne Dean MD) Hx of colonoscopy H/O wrist surgery H/O hand surgery Family History Father Heart problem, Onset Age: 80 Prostate cancer, Onset Age: 55 Mother COPD (chronic obstructive pulmonary disease) Sister Substance use disorder Social History Household Members Other:: , 2 children, (19, 11), Housing: House Patient Tobacco Use Status: Former Tobacco user e-Cigarette/Vaping Use: Never Used service: No Current occupational status: employed Cognitive needs: No Hearing needs: No Vision needs: Yes Questionnaire Thrive Questionnaire Date Thrive assessed: 12/30/24 I am a: Patient What is your living situation today?: I have a steady place to live Within the past 12 months, did the food you bought not last and you didn't have the money to get more?: Never true Within the past 12 months, did you worry whether your food would run out before you got money to buy more?: Never true Do you have trouble paying for medicines?: No Do you have trouble getting transportation to medical appointments?: No Do you have trouble paying your heating and electricity bill?: No Do you have trouble taking care of your child, family member or friend?: No Do you have trouble with day-to-day activities such as bathing, preparing meals, shopping, managing finances, etc.?: No Are you currently unemployed and looking for a job?: No Are you interested in more education?: No Please select the resources that you would like help with: None Currently or been in a relationship where the following occur: No concerns reported THRIVE Score: 0 DOC-7 AMB Questionnaire DOC-7 Date DOC - 7 assessed: 12/30/24 Feeling nervous, anxious, or on edge: 0 = Not at all Not being able to stop or control worryin = Not at all Worrying too much about different things: 0 = Not at all Trouble relaxin = Several days Being so restless that it is hard to sit still: 0 = Not at all Becoming easily annoyed or irritable: 0 = Not at all Feeling afraid as if something awful might happen: 0 = Not at all Total DOC-7 score (0-4 normal; 5-9 mild; 10-14 moderate; 15-21 severe): 1 Source: Developed by Drs. Yoel Tran, Arlin Phillips, Kehinde Garcia and colleagues, with an educational matt from [employer]. DOC-7 Assessment Billing DOC-7 Assessment Tool: DOC-7 Assessment 37138 Review of Systems Const All systems reviewed & are unremarkable except as noted in HPI and below Eyes Reports no additional complaints ENT Reports no additional complaints Card Reports no additional complaints Resp Reports no additional complaints GI Reports no additional complaints Reports no additional complaints Physical exam (Primary Care) Vital Signs: Last Vital Signs Pulse 90 12/30/24 11:58 BP 122/86 12/30/24 11:58 Pulse Ox 97 12/30/24 11:58 Oxygen Delivery Method Room Air 12/30/24 11:58 BMI result Body Mass Index 34.6 Tobacco/Smoking Status: Tobacco use Status Tobacco use date assessed 10/22/24 12/30/24 11:58 Patient Tobacco Use Status Former Tobacco user 12/30/24 11:58 e-Cigarette/Vaping Use Never Used 12/30/24 11:58 Thrive Assessment: Date of Thrive Assessment Date Thrive assessed 12/30/24 12/30/24 12:29 Currently or been in a relationship where the following occur: No concerns reported Const General: no acute distress HENMT Head: Yes normal to inspection Resp Effort & Inspection: normal respiratory effort Auscultation: clear to auscultation bilaterally Cardio Rhythm: regular rhythm Heart sounds: S1 normal heart sound present and S2 normal heart sound present Extrem General: Yes no clubbing, cyanosis or edema Coding Level of Care Code Est Pt Level 3 (59755) Diagnoses HTN (hypertension) I10 Overweight E66.3 Additional Codes DOC-7 Assessment Billing - DOC-7 Assessment Tool: DOC-7 Assessment 34297 ([id number]) Assessment & Plan Assessment & Plan (1) HTN (hypertension): Code(s): I10 - Essential (primary) hypertension Category: Medical Plan: Continue current medications. Check basic metabolic panel today. (2) Overweight: Code(s): E66.3 - Overweight Category: Medical Plan: Decreasing caloric intake increasing physical activity weight loss discussed with the patient, he will return for physical in 4 months with a fasting labs before Orders: Orders Basic Metabolic Panel Today I10 - Essential (primary) hypertension Complete Blood Count Auto Diff 4 Months I10 - Essential (primary) hypertension, Z00.00 - Encounter for general adult medical examination without abnormal findings Lipid Panel 4 Months I10 - Essential (primary) hypertension, Z00.00 - Encounter for general adult medical examination without abnormal findings Comprehensive [place]. Panel Fast 4 Months I10 - Essential (primary) hypertension, Z00.00 - Encounter for general adult medical examination without abnormal findings UA w Microscopic 4 Months I10 - Essential (primary) hypertension, Z00.00 - Encounter for general adult medical examination without abnormal findings Medications: Refilled amlodipine-olmesartan 5-20 mg 1 tab PO DAILY 90 tabs 3RF
--- OUTSIDE RECORDS SUMMARY | 2024-12-30 13:20 | XMS_ITS | Patient Health Record ---
Author Organization [facility] Address [address] [place] [address] Care Team Providers [employer] Worker Name Role Phone SURAJ MADRIGAL [phone] Results Component Value Reference Range Notes Ethyl Glucuronide, Urine Reviewed date:02/24/2024 02:04:39 PM Interpretation: Performing Lab:[facility], [address] [place] [address], Phone - [phone], [facility] - [facility] Notes/Report: Clinical Information:Client Drop Off CCU:[id number] RA Ethyl Glucuronide Screen, Ur Negative Azchvw=867 ng/mL This test was developed and its performance characteristics determined by [employer]. It has not been cleared or approved by the Food and Drug Administration. Buprenorphine Confirm, Urine Reviewed date:02/24/2024 02:04:28 PM Interpretation: Performing Lab:[facility], [address] [place] [address], Phone - [phone], Director - [facility] Notes/Report: Clinical Information:Client Drop Off CCU:[id number] RA Buprenorphine Positive Confirmation p erformed by Mass Spectrometry Buprenorphine Positive Buprenorphine Conf, MS, UR 222 Cutoff=10 ng/m L Norbuprenorphine Positive Norbuprenorphine Conf, MS, UR 452 Cutoff=10 ng/mL Adulteration (Dilution), Uri ne Reviewed date:02/24/2024 02:04:21 PM Interpretation: Performing Lab:[facility], [address] [place] [address], Phone - [phone], Director - E[facility] Notes/Report: Clinical Information:Client Drop Off CCU:[id number] RA Creatinine, Urine 270.4 20.0-300.0 mg/dL Nitrite, Urine Negative Krqhvm=307 mcg/mL pH, Urine 5.7 4.5-8.9 Cannabinoids, Conf, MS, UR Reviewed date:02/24/2024 02:04:33 PM Interpretation: Performing Lab:[facility], [address] [place] [address], Phone - [phone], Director - Anand Notes/Report: Clinical Information:Client Drop Off CCU:[id number] CANNABINOIDS +POSITIVE+ Carboxy-THC 66 This test is not intended to distinguish between the metabolites of qygmo-9-pnrrbjzplngsxjzk inol, the predominant form of THC in most herbal or marijuana-based products, and fehtm-3-coukrusbjlzwbwzg inol, a psychoactive compound generally synthesized from other cannabinoids. Level of Detection: Testing Threshold: 2 ng/mL ' This test was developed and its performance characteristics determined by [employer]. It has not been cleared or approved by the Food and Drug Administration. Ethyl Glucuronide, Urine Reviewed date:04/16/2024 04:48:08 PM Interpretation: Performing Lab:[facility], [address] [place] [address], Phone - [phone], Director - Anand Notes/Report: Clinical Information:Client Drop Off [id number]:[id number] Technical Component - Data Analysis performed at [address], [address] . National Secretary An Eaton MD Clinical Information:Client Drop Off CCU:[id number] [id number] RA Technical Component - Data Analysis performed at [address], [address] . National Secretary An Eaton MD Ethyl Glucuronide Screen, Ur See Final Results Pimisi=676 ng/mL This test was developed and its performance characteristics determined by [facility]. It has not been cleared or approved by the Food and Drug Administration. EtG/EtS LC/MS/MS Positive Fobfmf=107 Ethyl Glucuronide Positive Ethyl Glucuronide LC/MS/MS 3092 Hmxjdk=561 ng/ mL Ethyl Sulfate Positive Ethyl Sulfate LC/MS/MS 1966 Cutoff=75 ng/mL Please Note: Incidental exposure to alcohol may result in detectable levels of EtG and/or EtS. EtG/EtS results should be interpreted in the context of all available clinical and behavioral information. Technical consultation is available: email [email or web address], or call toll free [phone]. . Reference: [facility] Advisory, Spring 2011 Volume 11, Issue 2 Fentanyl/Norfentanyl, Confir m Reviewed date:04/16/2024 04:48:29 PM Interpretation: Performing Lab:[facility], [address] [place] [address], Phone - [phone], Director - Anand Notes/Report: Clinical Information:Client Drop Off [id number] RA Technical Component - Data Analysis performed at [address], [address] . National Secretary An Eaton MD Fentanyl/Norfentanyl Negative Jdhclb=356 Test in cludes Fentanyl and Norfentanyl Please Note: Drug test results should be interpreted in the context of clinical information. Patient metabolic variables, specific drug chemistry, and specimen characteristics can affect test outcome. Technical consultation is available if a test result is inconsistent with an expected outcome. Email: [email or web address] Buprenorphine Confirm, Urine Reviewed date:04/16/2024 04:48:35 PM Interpretation: Performing Lab:[facility], [address] [place] [address], Phone - [phone], Director - Anand Notes/Report: Clinical Information:Client Drop Off CCU:[id number] [id number] RA Technical Component - Data Analysis performed at [address], [address] . National Secretary An Eaton MD Buprenorphine Positive Confirmation p erformed by Mass Spectrometry Buprenorphine Positive Buprenorphine Conf, MS, UR 382 Cutoff=10 ng/m L Norbuprenorphine Positive Norbuprenorphine Conf, MS, UR 600 Cutoff=10 ng/mL Adulteration (Dilution), Uri ne Reviewed date:04/16/2024 04:48:15 PM Interpretation: Performing Lab:[facility], [address] [place] [address], Phone - [phone], Director - Anand Notes/Report: Clinical Information:Client Drop Off CCU:[id number] [id number] RA Technical Component - Data Analysis performed at [address], [address] . National Secretary An Eaton MD Creatinine, Urine 314.5 20.0-300.0 mg/dL Nitrite, Urine Negative Zmhges=616 mcg/mL pH, Urine 5.5 4.5-8.9 Cannabinoids, Conf, MS, UR Reviewed date:04/16/2024 04:48:22 PM Interpretation: Performing Lab:[facility], [address] [place] [address], Phone - [phone], Director - Anand Notes/Report: Clinical Information:Client Drop Off [id number] Technical Component - Data Analysis performed at [address], [address] . National Secretary An Eaton MD CANNABINOIDS +POSITIVE+ Carboxy-THC 51 This test is not intended to distinguish between the metabolites of yclwm-2-ekssakepdtzajlbl inol, the predominant form of THC in most herbal or marijuana-based products, and ftjxp-0-yetfnetlbaytcejs inol, a psychoactive compound generally synthesized from other cannabinoids. Level of Detection: Testing Threshold: 2 ng/mL ' This test was developed and its performance characteristics determined by [email or web address]. It has not been cleared or approved by the Food and Drug Administration. Ethyl Glucuronide, Urine Reviewed date:06/09/2024 12:24:40 PM Interpretation: Performing Lab:[address], Phone - [phone], Director - Kristina Notes/Report: Clinical Information:CCU:[id number] RA Clinical Information:CCU:[id number] [id number] RA Ethyl Glucuronide Screen, Ur See Final Results Fxhkpy=926 ng/mL This test was developed and its performance characteristics determined by [employer]. It has not been cleared or approved by the Food and Drug Administration. EtG/EtS LC/MS/MS Positive Zyvrot=023 Ethyl Glucuronide Positive Ethyl Glucuronide LC/MS/MS 60335 Fidwlt=651 ng/ mL Ethyl Sulfate Positive Ethyl Sulfate LC/MS/MS 4836 Cutoff=75 ng/mL Please Note: Incidental exposure to alcohol may result in detectable levels of EtG and/or EtS. EtG/EtS results should be interpreted in the context of all available clinical and behavioral information. Technical consultation is available: email [email or web address], or call toll free [phone]. . Reference: [facility], Spring 2011 Volume 11, Issue 2 Fentanyl/Norfentanyl, Confir m Reviewed date:06/09/2024 12:20:35 PM Interpretation: Performing Lab:[facility], [address] [place] [address], Phone - [phone], Director - Kristina Notes/Report: Clinical Information:CCU:[id number] [id number] RA Fentanyl/Norfentanyl Negative Tszwix=957 Test in cludes Fentanyl and Norfentanyl Please Note: Drug test results should be interpreted in the context of clinical information. Patient metabolic variables, specific drug chemistry, and specimen characteristics can affect test outcome. Technical consultation is available if a test result is inconsistent with an expected outcome. Email: Buprenorphine Confirm, Urine Reviewed date:06/09/2024 12:20:41 PM Interpretation: Performing Lab:[facility], [address] [place] [address], Phone - [phone], Director - Kristina Notes/Report: Clinical Information:CCU:[id number] RA Buprenorphine Positive Confirmation p erformed by Mass Spectrometry Buprenorphine Positive Buprenorphine Conf, MS, UR 186 Cutoff=10 ng/m L Norbuprenorphine Positive Norbuprenorphine Conf, MS, UR 232 Cutoff=10 ng/mL Adulteration (Dilution), Uri ne Reviewed date:06/09/2024 12:24:27 PM Interpretation: Performing Lab:[facility], [address] [place] [address], Phone - [phone], Director - Kristina Notes/Report: Clinical Information:CCU:[id number] [id number] RA Creatinine, Urine 165.4 20.0-300.0 mg/dL Nitrite, Urine Negative Ehtosj=341 mcg/mL pH, Urine 5.5 4.5-8.9 Ethyl Glucuronide, Urine Reviewed date:08/04/2024 09:38:07 AM Interpretation: Performing Lab:[facility], [address] [place] [address], Phone - [phone], Director - Anand Notes/Report: Clinical Information:Client Drop Off CCU:[id number] [id number] RA [address] [facility] [address] Clinical Information:Client Drop Off CCU:[id number] [id number] RA [address] [facility] [address] Ethyl Glucuronide Screen, Ur See Final Results Fmnofk=661 ng/mL This test was developed and its performance characteristics determined by [facility]. It has not been cleared or approved by the Food and Drug Administration. EtG/EtS LC/MS/MS Positive Cruych=187 Ethyl Glucuronide Positive Ethyl Glucuronide LC/MS/MS >67695 Ihgqrh=639 ng/ mL Ethyl Sulfate Positive Ethyl Sulfate LC/MS/MS >7500 Cutoff=75 ng/mL Please Note: Incidental exposure to alcohol may result in detectable levels of EtG and/or EtS. EtG/EtS results should be interpreted in the context of all available clinical and behavioral information. Technical consultation is available: email [email or web address], or call toll free [phone]. . Reference: [facility] Advisory, Spring 2011 Volume 11, Issue 2 Fentanyl/Norfentanyl, Confir m Reviewed date:08/04/2024 09:38:25 AM Interpretation: Performing Lab:[facility], [address] [place] [address], Phone - [phone], Director - Earn[facility]debby Notes/Report: Clinical Information:Client Drop Off CCU:[id number] RA [address] [facility] [address] Fentanyl/Norfentanyl Negative Jqcasl=490 Test in cludes Fentanyl and Norfentanyl Please Note: Drug test results should be interpreted in the context of clinical information. Patient metabolic variables, specific drug chemistry, and specimen characteristics can affect test outcome. Technical consultation is available if a test result is inconsistent with an expected outcome. Email: [email or web address] Buprenorphine Confirm, Urine Reviewed date:08/04/2024 09:38:19 AM Interpretation: Performing Lab:[facility], [address] [place] [address], Phone - [phone], - Earnixdebby Notes/Report: Clinical Information:Client Drop Off [id number]:[id number] RA [address] [facility] [address] Buprenorphine Positive Confirmation p erformed by Mass Spectrometry Buprenorphine Positive Buprenorphine Conf, MS, UR 180 Cutoff=10 ng/m L Norbuprenorphine Positive Norbuprenorphine Conf, MS, UR 278 Cutoff=10 ng/mL Adulteration (Dilution), Uri ne Reviewed date:08/04/2024 09:38:14 AM Interpretation: Performing Lab:[facility], [address] [place] [address], Phone - [phone], Director - [facility] Notes/Report: Clinical Information:Client Drop Off CCU:[id number] RA [address] [facility] [address] Creatinine, Urine 224.3 20.0-300.0 mg/dL Nitrite, Urine Negative Secgqu=799 mcg/mL pH, Urine 5.8 4.5-8.9 Cannabinoids, Conf, MS, UR Reviewed date:08/04/2024 09:38:31 AM Interpretation: Performing Lab:[facility], [address] [place] [address], Phone - [phone], Director - [facility] Notes/Report: Clinical Information:Client Drop Off CCU:[id number] [address] [facility] [address] CANNABINOIDS +POSITIVE+ Carboxy-THC 7 This test is not intended to distinguish between the metabolites of xijhh-2-dsexqqqdcftklwor inol, the predominant form of THC in most herbal or marijuana-based products, and arawj-6-qdzctxiywshvvjar inol, a psychoactive compound generally synthesized from other cannabinoids. Level of Detection: Testing Threshold: 2 ng/mL ' This test was developed and its performance characteristics determined by [facility]. It has not been cleared or approved by the Food and Drug Administration. Ethyl Glucuronide, Urine Reviewed date:10/01/2024 03:15:14 PM Interpretation: Performing Lab:[facility], [address] [place] [address], Phone - [phone], Director - [employer] Notes/Report: Clinical Information:Client Drop Off CCU:[id number] RA Clinical Information:Client Drop Off CCU:[id number] RA Ethyl Glucuronide Screen, Ur See Final Results Gvydvq=160 ng/mL This test was developed and its performance characteristics determined by [facility]. It has not been cleared or approved by the Food and Drug Administration. EtG/EtS LC/MS/MS Positive Vqhzoc=910 Ethyl Glucuronide Positive Ethyl Glucuronide LC/MS/MS >27454 Xwfcry=305 ng/ mL Ethyl Sulfate Positive Ethyl Sulfate LC/MS/MS >7500 Cutoff=75 ng/mL Please Note: Incidental exposure to alcohol may result in detectable levels of EtG and/or EtS. EtG/EtS results should be interpreted in the context of all available clinical and behavioral information. Technical consultation is available: email [email or web address] or call toll free [phone]. . Reference: [facility] Advisory, Spring 2011 Volume 11, Issue 2 Fentanyl/Norfentanyl, Confir m Reviewed date:10/01/2024 03:15:08 PM Interpretation: Performing Lab:[facility], [address] [place] [address], Phone - [phone], Director - [employer] Notes/Report: Clinical Information:Client Drop Off CCU:[id number] [id number] RA Fentanyl/Norfentanyl Negative Fbefff=383 Test in cludes Fentanyl and Norfentanyl Please Note: Drug test results should be interpreted in the context of clinical information. Patient metabolic variables, specific drug chemistry, and specimen characteristics can affect test outcome. Technical consultation is available if a test result is inconsistent with an expected outcome. Email: Buprenorphine Confirm, Urine Reviewed date:10/01/2024 03:14:48 PM Interpretation: Performing Lab:[facility], [address] [place] [address], Phone - [phone], Director - Earn[facility]debby Notes/Report: Clinical Information:Client Drop Off CCU:[id number] RA Buprenorphine Positive Confirmation p erformed by Mass Spectrometry Buprenorphine Positive Buprenorphine Conf, MS, UR 84 Cutoff=10 ng/m L Norbuprenorphine Positive Norbuprenorphine Conf, MS, UR 182 Cutoff=10 ng/mL Adulteration (Dilution), Uri ne Reviewed date:10/01/2024 03:15:00 PM Interpretation: Performing Lab:[facility], [address] [place] [address], Phone - [phone], Director - Anand Notes/Report: Clinical Information:Client Drop Off CCU:[id number] RA Creatinine, Urine 189.8 20.0-300.0 mg/dL Nitrite, Urine Negative Sbklmy=224 mcg/mL pH, Urine 7.5 4.5-8.9 Cannabinoids, Conf, MS, UR Reviewed date:10/01/2024 03:14:54 PM Interpretation: Performing Lab:[facility], [address] [place] [address], Phone - [phone], Director - Anand Notes/Report: Clinical Information:Client Drop Off CCU:[id number] RA CANNABINOIDS +POSITIVE+ Carboxy-THC 13 This test is not intended to distinguish between the metabolites of oqcku-0-redkiwcbvgemngij inol, the predominant form of THC in most herbal or marijuana-based products, and zqzku-0-xayetbbytkkdlhxm inol, a psychoactive compound generally synthesized from other cannabinoids. Level of Detection: Testing Threshold: 2 ng/mL ' This test was developed and its performance characteristics determined by [email or web address]. It has not been cleared or approved by the Food and Drug Administration. Ethyl Glucuronide, Urine Reviewed date:10/24/2024 04:35:44 PM Interpretation: Performing Lab:[facility], [address] [place] [address], Phone - [phone], Director - Anand Notes/Report: Clinical Information:Client Drop Off CCU:[id number] RA -Technical component - Data analysis performed at [address], [address]. [phone]. National Secretary An Deleon MD Ethyl Glucuronide Screen, Ur Negative Qsjlgs=051 ng/mL This test was developed and its performance characteristics determined by [employer]. It has not been cleared or approved by the Food and Drug Administration. Fentanyl/Norfentanyl, Confir m Reviewed date:10/24/2024 04:38:18 PM Interpretation: Performing Lab:[facility], [address] [place] [address], Phone - [phone], Director - Anand Notes/Report: Clinical Information:Client Drop Off CCU:[id number] [id number] RA -Technical component - Data analysis performed at [address], [address]. [phone]. National Secretary An Deleon MD Fentanyl/Norfentanyl Negative Nkaxnl=339 Test in cludes Fentanyl and Norfentanyl Please Note: Drug test results should be interpreted in the context of clinical information. Patient metabolic variables, specific drug chemistry, and specimen characteristics can affect test outcome. Technical consultation is available if a test result is inconsistent with an expected outcome. Email: [email or web address] Buprenorphine Confirm, Urine Reviewed date:10/24/2024 04:38:12 PM Interpretation: Performing Lab:[facility], [address] [place] [address], Phone - [phone], Director - Anand Notes/Report: Clinical Information:Client Drop Off CCU:[id number] [id number] RA -Technical component - Data analysis performed at [address], [address]. [phone]. National Secretary An Deleon MD Buprenorphine Positive Confirmation p erformed by Mass Spectrometry Buprenorphine Positive Buprenorphine Conf, MS, UR 420 Cutoff=10 ng/m L Norbuprenorphine Positive Norbuprenorphine Conf, MS, UR 582 Cutoff=10 ng/mL Adulteration (Dilution), Uri ne Reviewed date:10/24/2024 04:38:07 PM Interpretation: Performing Lab:[facility], [address] [place] [address], Phone - [phone], Director - Anand Notes/Report: Clinical Information:Client Drop Off CCU:[id number] [id number] RA -Technical component - Data analysis performed at [address], [address]. [phone]. National Secretary An Deleon MD Creatinine, Urine 442.5 20.0-300.0 mg/dL Nitrite, Urine Negative Glyycj=157 mcg/mL pH, Urine 5.5 4.5-8.9 Cannabinoids, Conf, MS, UR Reviewed date:10/25/2024 04:04:50 PM Interpretation: Performing Lab:[facility], [address] [place] [address], Phone - [phone], Director - Anand Notes/Report: Clinical Information:Client Drop Off CCU:[id number] -Technical component - Data analysis performed at [address], [address]. [phone]. National Secretary An Deleon MD CANNABINOIDS +POSITIVE+ Carboxy-THC 90 This test is not intended to distinguish between the metabolites of qvimt-8-cfyqmtbehmdbggyp inol, the predominant form of THC in most herbal or marijuana-based products, and xvhbn-2-ehzutcglthjastcn inol, a psychoactive compound generally synthesized from other cannabinoids. Level of Detection: Testing Threshold: 2 ng/mL ' This test was developed and its performance characteristics determined by [email or web address]. It has not been cleared or approved by the Food and Drug Administration. Ethyl Glucuronide, Urine Reviewed date:11/24/2024 08:54:08 AM Interpretation: Performing Lab:[address], Phone - [phone], Director - Kristina Notes/Report: Clinical Information:CCU:[id number] Ethyl Glucuronide Screen, Ur Negative Jgksqi=813 ng/mL This test was developed and its performance characteristics determined by [facility]. It has not been cleared or approved by the Food and Drug Administration. Fentanyl/Norfentanyl, Confir m Reviewed date:11/24/2024 08:54:21 AM Interpretation: Performing Lab:[address], Phone - [phone], Director - Kristina Notes/Report: Clinical Information:CCU:[id number] [id number] Fentanyl/Norfentanyl Negative Zshrzq=176 Test in cludes Fentanyl and Norfentanyl Please Note: Drug test results should be interpreted in the context of clinical information. Patient metabolic variables, specific drug chemistry, and specimen characteristics can affect test outcome. Technical consultation is available if a test result is inconsistent with an expected outcome. Email: [email or web address] Buprenorphine Confirm, Urine Reviewed date:11/24/2024 08:54:17 AM Interpretation: Performing Lab:[facility] [address] [place] [address], Phone - [phone], Director Sandra Acevedo Notes/Report: Clinical Information:CCU:[id number] [id number] Buprenorphine Positive Confirmation p erformed by Mass Spectrometry Buprenorphine Positive Buprenorphine Conf, MS, UR 282 Cutoff=10 ng/m L Norbuprenorphine Positive Norbuprenorphine Conf, MS, UR 964 Cutoff=10 ng/mL Adulteration (Dilution), Uri ne Reviewed date:11/24/2024 08:54:12 AM Interpretation: Performing Lab:[facility], [address] [place] [address], Phone - [phone], Director Sandra Acevedo Notes/Report: Clinical Information:CCU:[id number] RA Creatinine, Urine 473.4 20.0-300.0 mg/dL Nitrite, Urine Negative Erhafd=016 mcg/mL pH, Urine 5.6 4.5-8.9 Ethyl Glucuronide, Urine Reviewed date:12/17/2024 03:02:38 PM Interpretation: Performing Lab:[facility], [address] [place] [address], Phone - [phone], Director Sandra Acevedo Notes/Report: Clinical Information:CCU:[id number] Ethyl Glucuronide Screen, Ur Negative Jkafpz=737 ng/mL This test was developed and its performance characteristics determined by [facility]. It has not been cleared or approved by the Food and Drug Administration. Fentanyl/Norfentanyl, Confir m Reviewed date:12/17/2024 03:03:01 PM Interpretation: Performing Lab:[facility] [place], [address] [place] [address], Phone - [phone], Director Sandra Acevedo Notes/Report: Clinical Information:CCU:[id number] Fentanyl/Norfentanyl Negative Ymhkls=129 Test in cludes Fentanyl and Norfentanyl Please Note: Drug test results should be interpreted in the context of clinical information. Patient metabolic variables, specific drug chemistry, and specimen characteristics can affect test outcome. Technical consultation is available if a test result is inconsistent with an expected outcome. Email: [email or web address] Buprenorphine Confirm, Urine Reviewed date:12/17/2024 03:02:54 PM Interpretation: Performing Lab:[facility], [address] [facility], Phone - [phone], Director - Kristina Notes/Report: Clinical Information:CCU:[id number] RA Buprenorphine Positive Confirmation p erformed by Mass Spectrometry Buprenorphine Positive Buprenorphine Conf, MS, UR 116 Cutoff=10 ng/m L Norbuprenorphine Positive Norbuprenorphine Conf, MS, UR 388 Cutoff=10 ng/mL Adulteration (Dilution), Uri ne Reviewed date:12/17/2024 03:02:48 PM Interpretation: Performing Lab:[facility], [address] [facility], Phone - [phone], Director - Kritsina Notes/Report: Clinical Information:CCU:[id number] RA Creatinine, Urine 342.8 20.0-300.0 mg/dL Nitrite, Urine Negative Rryvhk=077 mcg/mL pH, Urine 5.6 4.5-8.9 Reason For Referral No Information Medications Medication SIG (Take, Route, Frequency, Duration) Notes Start Date End Date Status Buprenorphine HCl-Naloxone HCl 8-2 MG 1 film under the tongue and allow to dissolve Sublingual Three times daily for 30 days Partial refill upon pt request. [id number] 04/12/2022 Active Problems Problem Type SNOMED Code ICD Code Onset Dates Problem Status W/U Status Risk Notes Problem Opioid dependence (50796192) Opioid dependence, uncomplicated (F11.20) Active confirmed Encounters Encounter Location Date Provider Diagnosis [facility] [address] [place] [phone] 02/14/2024 [facility] [address] [place] [phone] 04/08/2024 [facility] [address] [place] [phone] 06/03/2024 [facility] [address] [place] [phone] 07/29/2024 [facility]AJ Pena [facility] [address] [place] [phone] 09/24/2024 SURAJ Pena [address] [phone] 10/17/2024 SURAJ Pena [address] [phone] 11/13/2024 SURAJ Pena [address] [phone] 12/12/2024 SURAJ MADRIGAL Plan Of Treatment Next Appt Details Provider Name:SURAJ SNYDER, 02/09/2025 11:00:00 AM, [address] [place] [address], [phone], Insurance Providers Payer Name Payer Address Payer Phone Subscriber Number Group Number Insured Name Patient Relationship to Insured Coverage Start Date Coverage End Date [facility] [address] [place] [id number] Rito Marquez Self - patient is the insured
== END 2024-12-30 12:56 | disposition home or self-care (01) ==
LOC: HO.HMCC 11:50
PROVIDERS: PCP Internal Medicine; Visit Provider Internal Medicine
DX: I10 Essential (primary) hypertension (principal); E66.3 Overweight

== ENCOUNTER 2024-12-30 11:48 | Outpatient (REF) | payer OTHER, SELFPAY ==
[2024-12-30 17:27] LABS: Anion Gap 14 (12-20); Blood Urea Nitrogen 10 mg/dL (9-16); Calcium 9.5 mg/dL (8.4-10.2); Carbon Dioxide 28 mmol/L (22-29); Chloride 102 mmol/L (96-108); Estimated Glomerular Filt Rate > 60; Glucose Random 119 mg/dL (60-115); Potassium 3.8 mmol/L (3.3-5.1); Sodium 140 mmol/L (135-145)
== END 2024-12-30 11:49 | disposition home or self-care (01) ==
LOC: HO.HMGCLDS 11:48
PROVIDERS: PCP Internal Medicine; Visit Provider Internal Medicine
DX: I10 Essential (primary) hypertension (principal); E66.3 Overweight; Z68.34 Body mass index [BMI] 34.0-34.9, adult
CPT/HCPCS: 36415; 80048; 96127